=== PATIENT | female | born 1965 | race Caucasian/White ===

== ENCOUNTER 2020-04-03 11:49 | Outpatient (CLI) | payer OTHER, SELFPAY ==
[2020-04-03 12:24] LABS: Basophils # 0.1 10^3/uL (0.0-0.1); Basophils % 1.2 %; Eosinophils # 0.3 10^3/uL (0.0-0.8); Eosinophils % 2.6 %; Hematocrit 43.7 % (37.0-47.0); Hemoglobin 14.4 g/dL (11.5-15.3); Lymphocytes # 2.9 10^3/uL (0.8-4.8); Lymphocytes % 29.9 %; Mean Corpuscular Hemoglobin 29.9 pg (28.0-34.0); Mean Corpuscular Volume 90.9 fL (81-99); Mean Platelet Volume 10.2 fL (7.4-10.4); Monocytes # 0.8 10^3/uL (0.2-0.9); Monocytes % 8.6 %; Neutrophils # 5.5 10^3/uL (1.8-7.7); Neutrophils % 56.7 %; Nucleated Red Blood Cells % 0 %; Platelet Count 137 10^3/cmm (130-400); Red Blood Count 4.81 10^6/uL (4.1-5.3); White Blood Count 9.7 10^3/uL (4.0-10.0)
[2020-04-03 12:44] LABS: LAB Peripheral Smear Sent for Review
== END 2020-04-03 11:50 | disposition home or self-care (01) ==
LOC: LAB 11:53
PROVIDERS: PCP Family Medicine; Visit Provider Family Medicine
DX: D69.6 Thrombocytopenia, unspecified (principal)
CPT/HCPCS: 80500; 85025

== ENCOUNTER 2021-07-23 10:29 | Outpatient (CLI) | payer OTHER, SELFPAY ==
--- NOTE | 2021-07-23 10:36 | MM_ITS ---
WS: [id number] SCREENING DIGITAL MAMMOGRAM WITH CAD HISTORY: SCREENING COMPARISON: 11/04/2018, 10/26/2017 Bilateral CC and MLO views submitted. Computer aided detection analyzed. Breast composition: There are scattered areas of fibroglandular density. Several ill-defined calcific ations are noted within the upper-outer quadrant of the RIGHT breast. The calcifications of increased since the prior examination. Due to the slight change consider additional evaluation with magnificat ion views. LEFT breast is negative. MM/[place] [id number] IMPRESSION: BI-RADS: 0-Incomplete: Need additional imaging evaluation FOLLOW UP: Need Additional Imaging RIGHT BREAST: Magnification views of suspicious calcification CC and MLO. True ML.
== END 2021-07-23 10:30 | disposition home or self-care (01) ==
LOC: RADSHAW 10:35
PROVIDERS: PCP Family Medicine; Visit Provider Family Medicine
DX: Z12.31 Encounter for screening mammogram for malignant neoplasm of breast (principal)
CPT/HCPCS: 77067

== ENCOUNTER 2021-08-01 09:35 | Outpatient (CLI) | payer OTHER, SELFPAY ==
--- NOTE | 2021-08-01 09:47 | MM_ITS ---
WS: [id number] ADDITIONAL VIEWS RIGHT BREAST HISTORY: calcifications right upper outer COMPARISON: 07/23/2021, 11/04/2018, 11/26/2017 Compression views right CC and MLO projection. True ML also submitted. Magnification views of calcifications in the upper outer quadrant are obtained. There are very vague calcifications in the upper outer quadrant at a posterior depth. These calcifications are very diffic ult to visualize but they do not appear pleomorphic and slightly increased in number. There is no lay ering to suggest benign etiology. MM/[place] [id number] IMPRESSION: BI-RADS: 4-Suspicious Finding-Biopsy Should Be Considered FOLLOW-UP: Biopsy Recommended Stereotactic biopsy recommended of calcifications in the upper-outer quadrant o f the RIGHT breast. These calcifications are very vague and difficult to visual ize. Recommend attempt at stereotactic biopsy. We may not be able to visualize these calcifications to biopsy but recommend at least attempting stereotactic b iopsy.
== END 2021-08-01 09:36 | disposition home or self-care (01) ==
LOC: RADSHAW 09:37
PROVIDERS: PCP Family Medicine; Visit Provider Family Medicine
DX: R92.8 Other abnormal and inconclusive findings on diagnostic imaging of breast (principal); R92.1 Mammographic calcification found on diagnostic imaging of breast
CPT/HCPCS: 77065

== ENCOUNTER 2021-08-20 07:28 | Outpatient (RCR) | payer OTHER, SELFPAY | END 2021-09-02 23:59 | disposition home or self-care (01) | LOC: SPT 07:28 | PROVIDERS: PCP Family Medicine; Visit Provider Chiropractor | DX: M25.561 Pain in right knee (principal) | CPT/HCPCS: 97110; 97161 ==

== ENCOUNTER 2021-09-25 10:50 | Outpatient (CLI) | payer OTHER, SELFPAY ==
--- NOTE | 2021-09-25 11:04 | XR_ITS ---
WS: [id number] HAND RIGHT TECHNIQUE: 3 views of the right hand CLINICAL INFORMATION: ARTHRITIS,HAND COMPARISON: None. FINDINGS: Normal metacarpals. Normal MCP joint. Metacarpal heads are normal in appearance. Moderate to advanced narrowing involving the first, second, third, and fourth DIP joints with osteophytosis. Mild to mode rate narrowing involving the PIP joints. No evidence of acute fracture or dislocation. Radiocarpal joint: Mild narrowing Carpal bones: Mild arthritis first CMC and STT. XR/XR hand RT min 3V* [id number] IMPRESSION: 1. Moderate to advanced degenerative narrowing involving the first, second, th ird and fourth DIP joints with marginal osteophytes 2. Mild narrowing of the radiocarpal joint. 3. No acute fractures.
--- NOTE | 2021-09-25 11:04 | XR_ITS ---
WS: [id number] HAND LEFT TECHNIQUE: 3 views of the left hand CLINICAL INFORMATION: ARTHRITIS,HAND COMPARISON: None. FINDINGS: Ulna minus variance. Moderate degenerative narrowing of the radiocarpal joint. Moderate degenerative arthritis first CMC and STT. Moderate to advanced narrowing involving the first through fifth DIP pan nts osteophytosis. Mild narrowing of the PIP joints. No acute fractures. Radiocarpal joint: Moderate degenerative narrowing Carpal bones: Moderate degenerative arthritis first CMC and STT XR/XR hand LT min 3V* [id number] IMPRESSION: 1. Ulna minus variance. 2. Moderate degenerative narrowing at the radiocarpal joint, first CMC, and ST T. 3. Moderate to advanced narrowing involving the DIP joints with osteophytosis. 4. Mild narrowing of the PIP joints.
== END 2021-09-25 10:51 | disposition home or self-care (01) ==
PROVIDERS: PCP Family Medicine; Visit Provider Family Medicine
DX: M19.042 Primary osteoarthritis, left hand; M19.041 Primary osteoarthritis, right hand
CPT/HCPCS: 73130

== ENCOUNTER → 2021-10-22 08:25 | Outpatient (BNVA) | payer OTHER, SELFPAY | PROVIDERS: PCP Family Medicine; Visit Provider Internal Medicine | DX: M19.90 Unspecified osteoarthritis, unspecified site (principal) | CPT/HCPCS: 99204 ==

== ENCOUNTER 2024-04-13 12:42 | Outpatient (CLI) | payer OTHER, SELFPAY ==
--- NOTE | 2024-04-13 12:51 | XRR_ITS ---
PROCEDURE INFORMATION: Exam: XR Right Foot Exam date and time: 04/13/2024 12:57 PM Age: 58 years old Clinical indication: Foot; Right; Patient HX: Pain in between 1st and 2nd metatarsal for 3 months, pain varies by day, no specific injury; Additional info: Pain in R foot along the 1st mt TECHNIQUE: Imaging protocol: Radiologic exam of the right foot. Views: 3 or more views. COMPARISON: No relevant prior studies available. FINDINGS: Bones/joints: No definite fracture or dislocation is appreciated. There appears to be joint space narrowing with probable small osteophytes and subchondral cysts involving the 2nd and 3rd tarsometatarsal joints. No subluxation is identified. Bony mineralization is normal. Joint spaces are otherwise relatively well preserved. Soft tissues: Normal. XR/XR foot RT min 3V* [id number] IMPRESSION: 1. Suspect osteoarthritis involving the 2nd and 3rd tarsometatarsal joints.
== END 2024-04-13 12:43 | disposition home or self-care (01) ==
PROVIDERS: PCP Family Medicine; Visit Provider Family Medicine
DX: M79.671 Pain in right foot (principal)
CPT/HCPCS: 73630

== ENCOUNTER 2024-09-30 08:05 | Emergency (ER) | payer OTHER, SELFPAY ==
[2024-09-30 08:09] VITALS: BP 137/109; PULSE 104; RESP 20; TEMP 36.9; O2SAT 96; BMI 31.1
--- NOTE | 2024-09-30 08:09 | ECG_ITS ---
[facility] Test Date: 2024-09-30 Pat Name: Elizabeth Minor Department: Room: Gender: Female Assistant Teacher: : 1965 Requested By: Willie Glass Order Number: [id number] Markell MD: Glenn Godwin M.D. Measurements Intervals [place] Rate: 107 P: 57 TN: 126 QRS: 5 QRSD: 103 T: 54 QT: 328 QTc: 439 Interpretive Statements SINUS TACHYCARDIA POSSIBLE ANTERIOR MYOCARDIAL INFARCTION , PROBABLY OLD [30 ms Q WAVE IN V3/V4, OR R < 0.2 mV IN V4] No previous ECG available for comparison Electronically Signed On 10-01-2024 20:08:34 FIELD ARTILLERY SENIOR SERGEANT by Glenn Godwin M.D. [email or web address]
--- NOTE | 2024-09-30 08:09 | XRR_ITS ---
PROCEDURE INFORMATION: Exam: XR Chest Exam date and time: 09/30/2024 8:22 AM Age: 59 years old Clinical indication: Cough and dyspnea; Additional info: Dyspnea/cough TECHNIQUE: Imaging protocol: Radiologic exam of the chest. Views: 1 view. COMPARISON: No relevant prior studies available. FINDINGS: Lungs: Lungs are clear bilaterally. Pleural spaces: No pleural effusion. No pneumothorax. Heart/Mediastinum: The cardiac silhouette and mediastinal contours are unremarkable. Bones/joints: Mild scoliosis in the visualized spine. XR/XR chest 1V portable [id number] IMPRESSION: 1. No acute cardiopulmonary process. 2. Incidental/nonacute findings are listed in the report.
[2024-09-30 08:17] VITALS: BP 137/109; PULSE 104; RESP 25; O2SAT 96
--- NOTE | 2024-09-30 08:22 | W.ED.CHESTPA ---
HPI - Chest Pain General: Chief Complaint: Chest Pain Stated Complaint: chest pain Time Seen by Provider: 09/30/24 08:08 History of Present Illness: 59-year-old female presents emergency room with complaint of chest pain began around 2 AM this morning. Radiates across her chest originates on the right side. She states its better when she moves like if she turns or reposition herself in bed. No radiation to the back or arms noted to the abdomen abdomen back or jaw. No known history of coronary artery disease however she did not had any evaluation for in the past. She is not diabetic no history of PE. No recent cough fever sweats or chills. Associated symptoms: Deny abdominal pain, dyspnea or fever(s) Related Data Home Medications Medication Instructions Recorded Confirmed fluticasone propionate 50 1 spray intranasal Q12H 11/21/19 09/30/24 mcg/actuation nasal spray,suspension diphenhydramine HCl 50 mg capsule 50 mg PO DAILY 10/22/21 09/30/24 multivitamin 1 tab PO DAILY 10/22/21 09/30/24 naproxen 500 mg tablet (Naprosyn) 500 mg PO Q12H 09/30/24 09/30/24 phentermine 15 mg capsule 15 mg PO DAILY 09/30/24 09/30/24 trazodone 100 mg tablet 100 mg PO QPM 09/30/24 09/30/24 venlafaxine 150 mg 150 mg PO DAILY 09/30/24 09/30/24 capsule,extended release 24 hr (Effexor XR) Allergies Allergy/AdvReac Type Severity Reaction Status Date / Time Penicillins Allergy Unknown Verified 09/30/24 08:17 Review of Systems Const: Denies: fever(s) or chills Card: Denies: chest pain Resp: Denies: dyspnea GI: Denies: abdominal pain : Denies: dysuria, urinary frequency or urinary urgency Musc: Denies: neck pain or back pain Skin/Breast: Denies: rash PFSH ED PFSH: Medical History (Updated 09/30/24 @ 11:13 by Willie Vitale DO) Screen for colon cancer Depression Surgical History History of hysterectomy (~2007) Family History Unknown Rheumatoid arthritis Denies family history of Diabetes Lupus Hyperlipidemia Heart attack Anesthesia complication Bleeding disorder Cancer Hypertension Stroke Social History Smoking and tobacco/nicotine status: never used tobacco/nicotine Second hand smoke exposure: No Alcohol intake: never Substance/Drug Use: never Adopted: No Caregiver/support person: Yes Lives independently: Yes Household members: spouse Housing: House Marital status: service: No Current occupational status: retired Current occupational exposures/hazards: No Pets and animals: No Sexually active: Yes Do you think of yourself as: Straight/Heterosexual Current gender identity: Female Meena/Sikh: Restoration Special meena needs: No Agree to transfusion: No Physical Exam Const: COMMON NORMALS: no acute distress GENERAL APPEARANCE: cooperative and comfortable ORIENTATION/CONSCIOUSNESS: Yes awake, Yes oriented to person, Yes oriented to place and Yes oriented to time HENMT: COMMON NORMALS: normocephalic, atraumatic and hearing grossly normal bilaterally HEAD & SCALP: normocephalic and atraumatic Resp: COMMON NORMALS: normal respiratory effort, No retractions, No use of accessory muscles and clear to auscultation bilaterally AUSCULTATION: clear to auscultation bilaterally Cardio: COMMON NORMALS: regular rate, regular rhythm and No murmurs present (Cardio) RATE: regular rate RHYTHM: regular rhythm GI: COMMON NORMALS: Soft to palpation and No hepatosplenomegaly present AUSCULTATION: Yes normoactive bowel sounds PALPATION: Yes Soft to palpation, No Tenderness to palpation present (GI), No Guarding due to palpation present (GI) and Yes No hepatosplenomegaly present Extremity: COMMON NORMALS: normal to inspection, capillary refill normal, no clubbing, cyanosis or edema, no calf tenderness and no pedal edema Neuro: SENSORIUM/ORIENTATION: Yes oriented to person, Yes oriented to place and Yes oriented to time Skin: COMMON NORMALS: no rashes or lesions noted GENERAL SKIN EXAM: no rashes or lesions noted Course Vital Signs: Vital signs: Vital Signs Temperature 98.5 F 09/30/24 08:09 Pulse Rate 80 09/30/24 11:19 Respiratory Rate 25 H 09/30/24 08:17 Blood Pressure 127/90 09/30/24 11:19 Pulse Oximetry 96 09/30/24 11:19 Oxygen Delivery Me thod Room Air 09/30/24 10:46 MDM - Chest Pain Medical Decision Making Chest x-ray does not show any pneumonia or pneumothorax no sign of widening mediastinum with suggestive of dissection aorta. There is no elevation of cardiac enzymes no acute EKG changes D-dimer is normal. Likely secondary cause of chest pain discharge patient home follow-up with primary care Medical Records I reviewed the patient's medical records. Lab Data I reviewed the patient's lab results. 09/30/24 08:23 09/30/24 08:23 Radiology Impressions Chest X-Ray 09/30/24 08:09 IMPRESSION: 1. No acute cardiopulmonary process. 2. Incidental/nonacute findings are listed in the report. Abdomen/Pelvis CT 09/30/24 09:03 IMPRESSION: 1. No acute abnormality in the abdomen or pelvis. 2. Incidental/nonacute findings are listed in the report. Laboratory Results WBC 9.02 10^3/uL (3.29-11.43) 09/30/24 08:23 RBC 4.75 10^6/uL (3.85-5.65) 09/30/24 08:23 Hgb 14.40 g/dL (11.27-16.99) 09/30/24 08:23 Hct 43.3 % (36-47) 09/30/24 08:23 MCV 91.2 fl (85-98) 09/30/24 08:23 MCH 30.3 pg (27-33) 09/30/24 08:23 MCHC 33.3 g/dL (30-55) 09/30/24 08:23 RDW 12.3 % (12.1-15.1) 09/30/24 08:23 Plt Count 110 10^3/cmm (157-399) L 09/30/24 08:23 MPV 9.9 fL (7.4-10.4) 09/30/24 08:23 Neut % (Auto) 58.1 % 09/30/24 08:23 Lymph % (Auto) 28.7 % 09/30/24 08:23 Nicholas % (Auto) 8.0 % 09/30/24 08:23 Eos % (Auto) 3.4 % 09/30/24 08:23 Baso % (Auto) 0.9 % 09/30/24 08:23 Neut # (Auto) 5.24 10^3/uL (1.8-7.7) 09/30/24 08:23 Lymph # (Auto) 2.6 10^3/uL (0.8-4.8) 09/30/24 08:23 Nicholas # (Auto) 0.7 10^3/uL (0.2-0.9) 09/30/24 08:23 Eos # (Auto) 0.3 10^3/uL (0.0-0.8) 09/30/24 08:23 Baso # (Auto) 0.1 10^3/uL (0.0-0.1) 09/30/24 08:23 Nucleated RBC % (auto) 0 % 09/30/24 08:23 Nucleated RBCs # 0.0 /100WBC 09/30/24 08:23 D-Dimer 0.33 ug/mLFEU (0-0.59) 09/30/24 08:23 Sodium 137 mmol/L (136-145) 09/30/24 08:23 Potassium 3.9 mmol/L (3.5-5.1) 09/30/24 08:23 Chloride 100 mmol/L (98-107) 09/30/24 08:23 Carbon Dioxide 24 mmol/L (22-29) 09/30/24 08:23 Anion Gap 16.9 (5-19) 09/30/24 08:23 BUN 13 mg/dL (8-23) 09/30/24 08:23 Creatinine 0.8 mg/dL (0.5-0.9) 09/30/24 08:23 GFR Calculation 73.2 mL/min (90-130) L 09/30/24 08:23 Glucose 101 mg/dL (65-115) 09/30/24 08:23 Calculated Osmolality 284 mOsm/kg (285-295) L 09/30/24 08:23 Calcium 8.7 mg/dL (8.5-10.5) 09/30/24 08:23 Total Bilirubin 0.3 mg/dL (0.15-1.2) 09/30/24 08:23 AST 14 U/L (0-32) 09/30/24 08:23 ALT 11 U/L (0-33) 09/30/24 08:23 Alkaline Phosphatase 102 U/L (35-105) 09/30/24 08:23 Troponin T Baseline < 6 ng/L (0-10) 09/30/24 08:23 Troponin T 120 Minute 6.00 ng/L (0-10) 09/30/24 10:25 Delta Troponin T 0.50738 ABS# (0-10) 09/30/24 10:25 Total Protein 6.7 g/dL (6.6-8.7) 09/30/24 08:23 Albumin 4.2 g/dL (3.5-5.2) 09/30/24 08:23 Globulin 2.5 g/dL (1.3-4.6) 09/30/24 08:23 Urine Color Yellow (Yellow) 09/30/24 08:30 Urine Appearance Clear (CLEAR) 09/30/24 08:30 Urine pH 5.0 (5-7) 09/30/24 08:30 Ur Specific [place] 1.029 (1.005-1.030) 09/30/24 08:30 Urine Protein Negative (Negative) 09/30/24 08:30 Urine Glucose (UA) Negative (Normal) 09/30/24 08:30 Urine Ketones Trace (Negative) 09/30/24 08:30 Urine Blood 2+ (Negative) A 09/30/24 08:30 Urine Nitrate Negative (Negative) 09/30/24 08:30 Urine Bilirubin Negative (Negative) 09/30/24 08:30 Urine Urobilinogen 1.0 mg/dL (Negative) 09/30/24 08:30 Ur Leukocyte Esterase Negative (Negative) 09/30/24 08:30 Urine RBC 21-50 /hpf (0-2) H 09/30/24 08:30 Urine WBC 0-5 /hpf (0-5) 09/30/24 08:30 Ur Squamous Epith Cells 6-10 /hpf (0-5) 09/30/24 08:30 Amorphous Sediment Not Reportable 09/30/24 08:30 Urine Bacteria Trace /hpf (NONE) 09/30/24 08:30 Hyaline Casts 2.46 /lpf 09/30/24 08:30 Coronavirus (PCR) Negative (Negative) 09/30/24 08:30 Influenza A (PCR) Negative (Negative) 12/28/24 08:30 Influenza Type B (PCR) Negative (Negative) 09/30/24 08:30 RSV (PCR) Negative (Negative) 09/30/24 08:30 All radiology interpretation(s) finalized by discharge Discharge Plan Discharge Patient Disposition: Home Clinical Impression: Atypical chest pain, Hematuria Condition: Stable Prescriptions: No Action fluticasone propionate 50 mcg/actuation spray,suspension 1 spray INTRANASAL Q12H diphenhydramine HCl 50 mg capsule 50 mg PO DAILY multivitamin Tablet 1 tab PO DAILY phentermine 15 mg capsule 15 mg PO DAILY venlafaxine [Effexor XR] 150 mg capsule,extended release 24hr 150 mg PO DAILY trazodone 100 mg tablet 100 mg PO QPM naproxen [Naprosyn] 500 mg tablet 500 mg PO Q12H Discharge Orders: Discharge ED (Routine); Ordered 09/30/24 Ordered By: Willie Vitale Referrals: Constantino Little MD [Primary Care Provider] - Discharge Diet: Usual diet Discharge Activity: Increase activity as tolerated Patient Instructions: Opioid Safety, Pain Management Activity Restrictions/Additional Instructions: Thank you for choosing [facility] for your healthcare needs today. It is very important that you follow up as instructed or that you return to the Emergency Department should you have concerns or if your condition changes or worsens in any way. You were seen in the emergency room with complaint chest pain. Your cardiac enzymes and EKG did not show any signs of acute coronary disease. Your chest x-ray was normal and a D-dimer to screen for pulmonary emboli was also normal. You were incidentally noted to have some blood in the urine CT scan of your urinary system did not show any significant pathology you should have a UA repeated in 1 to 2 weeks with your primary care doctor. Coding Level of Care Code ED Fish Processing Supervisor for Bill Maddox
[2024-09-30 08:31] LABS: Basophils # 0.1 10^3/uL (0.0-0.1); Basophils % 0.9 %; Eosinophils # 0.3 10^3/uL (0.0-0.8); Eosinophils % 3.4 %; Hematocrit 43.3 % (36-47); Lymphocytes # 2.6 10^3/uL (0.8-4.8); Lymphocytes % 28.7 %; Mean Corpuscular HGB Conc 33.3 g/dL (30-55); Mean Corpuscular Hemoglobin 30.3 pg (27-33); Mean Corpuscular Volume 91.2 fl (85-98); Mean Platelet Volume 9.9 fL (7.4-10.4); Monocytes # 0.7 10^3/uL (0.2-0.9); Neutrophils # 5.24 10^3/uL (1.8-7.7); Neutrophils % 58.1 %; Nucleated Red Blood Cells % 0 %; Platelet Count 110 10^3/cmm (157-399); Red Blood Count 4.75 10^6/uL (3.85-5.65); Red Cell Distribution Width 12.3 % (12.1-15.1); White Blood Count 9.02 10^3/uL (3.29-11.43)
[2024-09-30 08:45] LABS: D Dimer 0.33 ug/mLFEU (0-0.59)
[2024-09-30 08:46] LABS: Bilirubin Urine Negative (Negative); Blood Urine 2+ (Negative); Glucose Urine UA Negative (Normal); Ketones Urine Trace (Negative); Leukocyte Esterase Urine Negative (Negative); Nitrate Urine Negative (Negative); Protein Urine Negative (Negative); Specific Gravity, Urine 1.029 (1.005-1.030); Urine Appearance Clear (CLEAR); Urine Color Yellow (Yellow)
[2024-09-30 08:46] LABS: Troponin(5th) Baseline < 6 ng/L (0-10)
[2024-09-30 08:51] LABS: Add Urine Microscopic? YES; Bacteria Urine Trace /hpf; Hyaline Casts Urine 2.46 /lpf; RBC Urine 21-50 /hpf (0-2); WBC Urine 0-5 /hpf (0-5)
[2024-09-30 08:52] LABS: Add Urine Culture? Yes
[2024-09-30 08:58] LABS: Alanine Aminotransferase 11 U/L (0-33); Albumin Level 4.2 g/dL (3.5-5.2); Alkaline Phosphatase 102 U/L (35-105); Anion Gap 16.9 (5-19); Aspartate Amino Transferase 14 U/L (0-32); Blood Urea Nitrogen 13 mg/dL (8-23); Calcium 8.7 mg/dL (8.5-10.5); Carbon Dioxide 24 mmol/L (22-29); Chloride 100 mmol/L (98-107); Globulin 2.5 g/dL (1.3-4.6); Glomerular Filtration Rate 73.2 mL/min (90-130); Glucose 101 mg/dL (65-115); Osmolality Calculated 284 mOsm/kg (285-295); Potassium 3.9 mmol/L (3.5-5.1); Sodium 137 mmol/L (136-145); Total Bilirubin 0.3 mg/dL (0.15-1.2); Total Protein 6.7 g/dL (6.6-8.7)
--- NOTE | 2024-09-30 09:03 | CTR_ITS ---
PROCEDURE INFORMATION: Exam: CT Abdomen And Pelvis Without Contrast Exam date and time: 09/30/2024 9:14 AM Age: 59 years old Clinical indication: Other: Hematuria; Prior surgery; Surgery date: 6+ months; Surgery type: Hyster TECHNIQUE: Imaging protocol: Computed tomography of the abdomen and pelvis without contrast. Sagittal and coronal reformatted images were also reviewed. Radiation optimization: All CT scans at this facility use at least one of these dose optimization techniques: automated exposure control; mA and/or kV adjustment per patient size (includes targeted exams where dose is matched to clinical indication); or iterative reconstruction. COMPARISON: CR (CHEST, ) 09/30/2024 8:22 AM RADIATION DOSE METRICS: Total DLP (mGy-cm): 604.61 FINDINGS: Limitations: Evaluation of solid organs and vasculature is limited without intravenous contrast. This is standard protocol for evaluation of possible urolithiasis. Lungs: Visualized lungs are clear. Pleural spaces: No pleural effusion. Heart: Visualized portions of the heart are unremarkable. Liver: Simple cysts scattered in the liver, the largest in the left lobe of the liver measures 3.1 cm. Gallbladder and biliary ducts: The gallbladder is unremarkable. No biliary ductal dilatation. Pancreas: The pancreas is unremarkable. No pancreatic ductal dilatation. Spleen: The spleen is unremarkable. Adrenal glands: The right and left adrenal glands are unremarkable. Kidneys and ureters: The right and left kidneys are unremarkable. The right and left ureters are unremarkable. No hydroureteronephrosis. No calcified urolithiasis. Stomach and bowel: No obstruction. No mucosal thickening. Appendix: The appendix is visualized and is unremarkable. No findings to suggest acute appendicitis. Intraperitoneal space: No free intraperitoneal air. No ascites. No loculated fluid collections to suggest an abscess. Vasculature: No evidence for aortic aneurysm. Multiple calcifications in the pelvis most likely representing calcified phleboliths. Lymph nodes: No lymphadenopathy. Urinary bladder: The bladder is unremarkable for the degree of distension. Reproductive: Patient has had a previous hysterectomy. The ovaries are not definitely visualized, not an expected in a postmenopausal female. This may be due to ovarian atrophy. Alternatively, the patient may have had a previous bilateral oophorectomy. Bones/joints: Degenerative changes in the spine and hips. Soft tissues: No acute abnormality in the extra-abdominal soft tissues. CT/CT kidney stone [id number] IMPRESSION: 1. No acute abnormality in the abdomen or pelvis. 2. Incidental/nonacute findings are listed in the report.
[2024-09-30 09:22] LABS: Covid PCR NEGATIVE (Negative); Influenza A NEGATIVE (Negative); Influenza B NEGATIVE (Negative); Respiratory Syncytial Virus Ce NEGATIVE (Negative)
--- NOTE | 2024-09-30 10:09 | ECG_ITS ---
[facility] Date: 2024-09-30 Pat Name: Elizabeth Minor Department: Room: Gender: Female Grader Meat: : 1965 Requested By: Willie Glass Order Number: [id number] Markell MD: Glenn Godwin M.D. Measurements Intervals [place] Rate: 77 P: 55 MN: 154 QRS: 10 QRSD: 85 T: 44 QT: 371 QTc: 421 Interpretive Statements SINUS RHYTHM Compared to ECG 09/30/2024 08:09:37 Sinus tachycardia no longer present Myocardial infarct finding no longer present Electronically Signed On 10-01-2024 20:16:41 LUMBER PRESS OPERATOR by Glenn Godwin M.D. [email or web address]
[2024-09-30 10:46] VITALS: BP 135/108; PULSE 87; O2SAT 96
[2024-09-30 10:56] LABS: Troponin 5 2HR Delta 0.00001 ABS# (0-10)
[2024-09-30 11:19] VITALS: BP 127/90; PULSE 80; O2SAT 96
== END 2024-09-30 11:24 | disposition home or self-care (01) ==
PROVIDERS: Emergency Provider Family Medicine; PCP Family Medicine
DX: R07.89 Other chest pain (principal); R31.9 Hematuria, unspecified; Z11.52 Encounter for screening for COVID-19
CPT/HCPCS: 36415; 71045; 74176; 80053; 81001; 84484; 85025; 85378; 87086; 87637; 93005; 99285